=== PATIENT | male | born 1990 | race Caucasian/White ===

== ENCOUNTER 2017-07-03 06:00 | Inpatient (IN) | payer OTHER ==
[~2017-07-03] VITALS: Ht 175.3 cm; Wt 82.6 kg
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
--- NOTE | ~2017-07-03 | CR281 ---
[facility] A Service of [facility] RADIOLOGY TEXT RESULTS PATIENT: GALDINO TATUM LOCATION: P2L P255-1 : [birth year] UNIT #: [id number] AGE: [address]: Turner Abraham MD SEX: M ORDER DR: [id number] [place] [id number] [facility]. [place], [place] [address] [id number] MR#: [id number] Acc #: [id number] NAME: GALDINO TATUM : 1990 SEX: M STUDY DATE/TIME: 07/06/2017 13:09 UNIT: [facility] ROOM: [facility] STUDY DESCRIPTION: CR Wrist Min 3 View Lt Attending Physician: Turner Abraham M.D. Ordering Physician: Turner Abraham M.D. Primary Care Physician: Primary Care Physician No MEDICAL IMAGING REPORT This report is preliminary unless electronic signature is present EXAM Left wrist, 3 views HISTORY Wrist pain, complains of chronic pains/bump over distal radius for several years. FINDINGS Three views of the left wrist demonstrates ulnar minus variance. No fracture or dislocation. Carpal alignment appears normal. Soft tissues unremarkable. IMPRESSION Negative ulnar minus variance at the wrist; otherwise, negative exam. Dictated by... Shawn Mayberry M.D. THIS IS AN ELECTRONICALLY VERIFIED REPORT Shawn Mayberry M.D. at 07/07/2017 10:03 AM FARIHA/hola TD: 07/07/2017 09:18 JOB #: [id number] MEDICAL IMAGING REPORT Page 1 of 1 COPY
--- NOTE | ~2017-07-03 | PN ---
Unit #: [id number] #: [id number] Patient: GALDINO TATUM [id number] [facility] [address] [place] [address] [id number] I MR#: [id number] NAME: GALDINO TATUM ROOM: P255 Age: 26 Sex: M Admission Date: 07/03/2017 : 1990 Attending Physician: Turner Abraham M.D. Admitting Physician: Turner Abraham M.D. Primary Care Physician: Primary Care Physician Brielle BERUMEN PROGRESS NOTES DATE 07/08/2017 DISCUSSION The patient reports that he is feeling a bit less anxious with initiation of Inderal. He is stating now that he hopes to return to [place] to live with his mother upon discharge as recommended, that this certainly would beat living under a (1) __. Dictated by... Turner Abraham M.D. CB/bzg TD: 07/08/2017 14:20 JOB #: [id number] [facility] PROGRESS NOTES Page 1 of 1 X Turner Abraham MD X PROGRESS NOTE
--- NOTE | ~2017-07-03 | PA ---
Unit #: [id number] #: [id number] Patient: GALDINO TATUM [id number] [facility] [address] [place] [address] [id number] I MR#: [id number] NAME: GALDINO TATUM ROOM: P255 Age: 26 Sex: M Admission Date: 07/03/2017 : 1990 Date of Assessment: 07/03/2017 Attending Physician: Turner Abraham M.D. Admitting Physician: Turner Abraham M.D. Primary Care Physician: Primary Care Physician No PSYCHIATRIC ASSESSMENT IDENTIFYING INFORMATION The patient is a 26-year-old male admitted [facility] with increasing paranoia and suicidal thinking. CHIEF COMPLAINT None given. INFORMANT(S) Patient and chart, reliability good. HISTORY OF PRESENT ILLNESS The patient is a 26-year-old male who has been homeless for the past 18 months. He was admitted in transfer from [facility] where he presented with increasing auditory hallucinations, visual hallucination, horrific thoughts, and thoughts of suicide. The patient has been homeless for the past 18 months per his report. He has been using a great deal of spice and methamphetamine in the past couple of days and has not slept in 2 days. The patient reports that he has followed through the auspices of [facility] and also goes to the [facility]. He has been off these medications for sometime. He reports that he does take Risperdal but has not recalled the names of other medications prescribed. When seen today, the patient remains very dysphoric, flat, and exhibits some thought blocking. He is continuing to endorse positive suicidal ideation as well as psychotic thinking. PAST PSYCHIATRIC HISTORY As above. PAST MEDICAL HISTORY Significant for history of GERD. MEDICATIONS The patient knows that he is on Risperdal but is uncertain of his other medications. ALLERGIES None reported. FAMILY HISTORY Noncontributory. SOCIAL HISTORY The patient's substance abuse history is as noted previously. He is Unit #: [id number] #: [id number] Patient: GALDINO TATUM unemployed and has been homeless for the past year and a half. MENTAL STATUS EXAMINATION Examination at this time reveals the patient to be a well-developed well-nourished somewhat disheveled male appearing his stated age. There were multiple tattoos on his face. The patient is awake, alert, and oriented in all spheres. His mood is dysphoric, his affect blunted. Speech is impoverished but generally well coherent. There are no gross deficits in memory or cognition noted. Intelligence is judged to be in the average range based on fund of knowledge. The patient is cooperative throughout the interview. He is currently endorsing positive suicidal ideation. He denies homicidal ideation. He reports positive psychotic symptoms as noted previously. His judgment and insight appear to be significantly impaired. ASSETS AND LIABILITIES The patient's assets are to be assessed. Liabilities: Lack of resources, homelessness, ongoing substance use. DIAGNOSTIC IMPRESSION 1. Methamphetamine-use disorder. 2. Hallucinogen-use disorder. 3. Mood disorder. 4. Psychotic disorder, unspecified. TREATMENT PLAN The patient remains hospitalized for safety and stabilization. We will restart Risperdal given to the patient in a single 2-mg M-Tab dose now, and then we will look to verify his doses of Risperdal and other medications with [employer] and [employer]. ESTIMATED LENGTH OF STAY 5 to 7 days. The followup will take place through the auspices of community mental health resources. Dictated by... Turner Abraham M.D. Allison TD: 07/03/2017 13:55 JOB #: [id number] PSYCHIATRIC ASSESSMENT Page 1 of 1 X Turner Abraham MD X PSYCHIATRIC ASSESSMENT
--- NOTE | ~2017-07-03 | PN ---
Unit #: [id number] #: [id number] Patient: GALDINO TATUM [id number] [facility] [address] [place] [address] [id number] I MR#: [id number] NAME: GALDINO TATUM ROOM: P255 Age: 26 Sex: M Admission Date: 07/03/2017 : 1990 Attending Physician: Turner Abraham M.D. Admitting Physician: Turner Abraham M.D. Primary Care Physician: Primary Care Physician Brielle BERUMEN PROGRESS NOTES DATE 07/07/2017 DISCUSSION The patient states that he will be able to move to [place] and is making arrangements with his mother to arrange for transportation, I will allow the patient one further day to finalize his disposition plans and will look towards a.m. discharge. Dictated by... Turner Abraham M.D. CB/lindsay TD: 07/09/2017 13:13 JOB #: [id number] [facility] PROGRESS NOTES Page 1 of 1 X Turner Abraham MD PROGRESS NOTE
--- NOTE | ~2017-07-03 | PN ---
Unit #: [id number] #: [id number] Patient: GALDINO TATUM [id number] [facility] [address] [place] [address] [id number] I MR#: [id number] NAME: GALDINO TATUM ROOM: [facility]5 Age: 26 Sex: M Admission Date: 07/03/2017 : 1990 Attending Physician: Turner Abraham M.D. Admitting Physician: Turner Abraham M.D. Primary Care Physician: Primary Care Physician Brielle BERUMEN PROGRESS NOTES DATE 07/04/2017 DISCUSSION The patient is abed resting comfortably after requiring a p.r.n. dose of Risperdal earlier today. We have received word of his medications from the [facility] and will restart those. I will increase the patient's Risperdal to 2 mg b.i.d. Dictated by... Turner Abraham M.D. CROW/maricel TD: 07/04/2017 15:09 JOB #: [id number] [facility] PROGRESS NOTES Page 1 of 1 X Turner Abraham MD X PROGRESS NOTE
--- NOTE | ~2017-07-03 | PN ---
Unit #: [id number] #: [id number] Patient: GALDINO TATUM [id number] [facility] [address] [place] [address] [id number] MR#: [id number] NAME: GALDINO TATUM ROOM: [facility]5 Age: 26 Sex: M Admission Date: 07/03/2017 : 1990 Attending Physician: Turner Abraham M.D. Admitting Physician: Turner Abraham M.D. Primary Care Physician: Primary Care Physician Brielle BERUMEN PROGRESS NOTES DATE 07/07/2017 DISCUSSION The patient continues to complain of auditory hallucinations of a command type and continues to feel unsafe outside the hospital continuing to report positive suicidal ideation. He has tolerated the increase dose of Risperdal without complaint but further titration may become necessary. He is complaining of some symptoms of gastroesophageal reflux disease and I will start him on Protonix today. Dictated by... Turner Abraham M.D. CB/praneeth TD: 07/08/2017 05:08 JOB #: [id number] [facility] PROGRESS NOTES Page 1 of 1 X Turner Abraham MD PROGRESS NOTE
--- NOTE | ~2017-07-03 | PN ---
Unit #: [id number] #: [id number] Patient: GALDINO TATUM [id number] [facility] [address] [place] [address] [id number] I MR#: [id number] NAME: GALDINO TATUM ROOM: [facility]5 Age: 26 Sex: M Admission Date: 07/03/2017 : 1990 Attending Physician: Turner Abraham M.D. Admitting Physician: Turner Abraham M.D. Primary Care Physician: Primary Care Physician Brielle BERUMEN PROGRESS NOTES DATE 07/06/2017 DISCUSSION The patient refused his medications this morning. I have gently but firmly confronted him regarding his need to comply fully with medication. He is complaining of palpitations and anxiety. I will add Adderall 10 mg three times daily but the patient continues to refuse medications. I will look to discharge him. Dictated by... Turner Abraham M.D. CB/praneeth TD: 07/06/2017 23:02 JOB #: [id number] [facility] PROGRESS NOTES Page 1 of 1 X Turner Abraham MD PROGRESS NOTE
--- NOTE | ~2017-07-03 | DS ---
Unit #: [id number] #: [id number] Patient: GALDINO TATUM [id number] [facility] [address] [place] [address] [id number] MR#: [id number] NAME: GALDINO TATUM ROOM: [facility]5 Age: 26 Sex: M Admission Date: 07/03/2017 : 1990 Discharge Date: 07/10/2017 Attending Physician: Turner Abraham M.D. Primary Care Physician: Primary Care Physician No DISCHARGE SUMMARY REASON FOR ADMISSION The patient is a 18-year-old male, admitted to the [facility] with increasing auditory hallucinations and suicidal thinking. HOSPITAL COURSE The patient was admitted to the [facility] and placed on suicide precautions. He was continued on previously prescribed medications. The Risperdal was increased to a final dose of 3 mg b.i.d. daily. The patient complained of some palpitations and was begun on Inderal 10 mg t.i.d. daily and trazodone and Vistaril also added on a p.r.n. basis. The patient participated actively within the therapeutic milieu and showed gradual improvement. By 07/10/2017, he had made arrangements to return to his hometown of [place], [place] and discharge was ordered. FINAL DIAGNOSES Bipolar disorder, most recent episode depressed; methamphetamine use disorder; hallucinogen use disorder; psychotic disorder, unspecified. DISPOSITION ON DISCHARGE The patient is discharged on the following medications: Depakote 500 mg two tablets b.i.d. for mood stabilization, Vistaril 50 mg q.6 hours p.r.n. anxiety, Risperdal 3 mg b.i.d. for psychosis, Inderal 10 mg t.i.d. for anxiety, and trazodone 200 mg at bedtime p.r.n. insomnia. DISCHARGE INSTRUCTIONS No dietary or physical restrictions were placed on the patient at the time of discharge. FOLLOWUP Followup will take place through the auspices of community mental health resources. PROGNOSIS The patient's prognosis is considered fair. Dictated by... Turner Abraham M.D. CB/homer TD: 07/10/2017 13:50 JOB #: [id number] Unit #: [id number] #: [id number] Patient: GALDINO TATUM DISCHARGE SUMMARY Page 1 of 1 X Turner Abraham MD X DISCHARGE SUMMARY
--- NOTE | ~2017-07-03 | PN ---
Unit #: [id number] #: [id number] Patient: GALDINO TATUM [id number] [facility] [address] [place] [address] [id number] MR#: [id number] NAME: GALDINO TATUM ROOM: [facility]5 Age: 26 Sex: M Admission Date: 07/03/2017 : 1990 Attending Physician: Turner Abraham M.D. Admitting Physician: Turner Abraham M.D. Primary Care Physician: Primary Care Physician Brielle BERUMEN PROGRESS NOTES DATE 07/05/2017 DISCUSSION The patient is complaining of increasing anxiety. We have added Vistaril and because of his complaints of auditory hallucinations will increase his Risperdal dose to 3 mg b.i.d. Dictated by... Turner Abraham M.D. CB/maricel TD: 07/05/2017 11:56 JOB #: [id number] [facility] PROGRESS NOTES Page 1 of 1 X Turner Abraham MD X PROGRESS NOTE
[~2017-07-03 06:00] MED LIST: KEPPRA750 MG PO
== END 2017-07-10 14:20 | disposition home or self-care (01) | DRG 885 ==
LOC: P2L 11:30
DX: F39 Unspecified mood [affective] disorder (principal); R45.851 Suicidal ideations; F15.10 Other stimulant abuse, uncomplicated; F16.10 Hallucinogen abuse, uncomplicated; F29 Unspecified psychosis not due to a substance or known physiological condition; F17.200 Nicotine dependence, unspecified, uncomplicated
CPT/HCPCS: 73110